=== PATIENT | male | born 1990 | race Caucasian/White ===

== ENCOUNTER 2017-07-01 08:43 | Emergency (ER) | payer BC ==
[2017-07-01] MEDS ORDERED: Ketorolac INJ* 30 MG/ML 1 ML VIAL IV PUSH ONE (08:53)
[2017-07-01] MEDS ORDERED: NS 0.9% 1000 ML* 1,000 ML IV ONE (08:53)
[2017-07-01] MEDS ORDERED: Ondansetron INJ* 2 MG/ML VIAL IV ONE (08:57)
[2017-07-01 09:11] LABS: ABS Basophils 0.1 10^3/ul (0-0.2); ABS Eosinophils 0.1 10^3/ul (0-0.6); ABS Lymphocytes 1.1 10^3/ul (1.0-4.8); ABS Monocytes 0.8 10^3/ul (0-0.8); ABS Neutrophils 10.7 10^3/ul (1.5-7.7); ABS Nucleated RBC 0 10^3/ul; Eosinophil % 0.4 % (0-6); Hematocrit 46 % (42-52); Hemoglobin 15.2 g/dl (14.0-18.0); Lymphocyte % 8.6 % (25-47); Mean Corpuscular HGB Conc 33 g/dl (31-36); Mean Corpuscular Hemoglobin 30 pg (27-31); Mean Corpuscular Volume 91 fL (80-94); Mean Platelet Volume 8.4 um3 (7.4-10.4); Nucleated Red Blood Cells % 0; Platelet Count 330 10^3/ul (150-450); Red Blood Count 5.04 10^6/ul (4.0-5.4); Red Cell Distribution Width 13 % (10.5-15); White Blood Count 12.7 10^3/ul (3.5-10.8)
--- NOTE | 2017-07-01 09:27 | RAD ---
CLINICAL HISTORY: Left flank pain. COMPARISON: None TECHNIQUE: Noncontrast CT examination of the abdomen and pelvis from the lung bases through the initial tuberosities. FINDINGS: VISUALIZED LUNG BASES: The visualized lung bases are grossly clear. There is no pleural effusion. ABDOMEN AND PELVIS: Evaluation of the solid organs and vasculature is limited without intravenous contrast. The liver, spleen, pancreas and adrenal glands are grossly normal in appearance. The gallbladder is normal. At the lower pole collecting system of the right kidney there is a nonobstructing punctate calcification (coronal image 42). Otherwise the right kidney is normal in appearance without focal mass, calcification or signs of hydronephrosis. At the lower pole collecting system of the right kidney (coronal image 43) there is a 3 mm calcification. The left kidney exhibits a mild degree of hydronephrosis and the left ureter, though not pathologically dilated strictly by size criteria, appears wider than the contralateral right ureter. At the left ureterovesical junction there is a 3 mm calcification (coronal image 48 and axial image 142). Evaluation of the gastrointestinal tract is limited without oral contrast. The small and large bowel are not distended.The patient's normal appendix is identified in the right lower quadrant measuring 6 mm in diameter (coronal image 36 and axial image 100).. There is no gross retroperitoneal or mesenteric lymphadenopathy. The pelvic viscera is normal in appearance. The abdominal aorta and iliac arteries are normal in course and diameter. Degenerative changes at L5/S1 include loss of intervertebral disc height and marginal osteophyte formation.There are no sinister bone lesions. IMPRESSION: 1. There is mild left-sided hydronephrosis with a 3 mm calcification at the left ureterovesical junction. Additional nonobstructing renal calculi are noted in the bilateral collecting systems. 2. Degenerative changes are noted at L5/S1 that appear advanced for the patient's age.
[2017-07-01 10:05] LABS: Urine Appearance Clear; Urine Blood 2+ (Negative); Urine Color Yellow; Urine Ketones Trace (Negative); Urine Protein Negative (Negative); Urine Specific Gravity 1.017 (1.010-1.030); Urine Urobilinogen Negative (Negative)
--- NOTE | 2017-07-01 10:14 | ED ---
Abdominal Pain/Male - HPI Summary HPI Summary: Patient is an otherwise healthy 26-year-old male presenting to the ED with chief complaint of left sided flank pain. History of kidney stones and states spell similar. Endorses nausea, but no vomiting. Pain is been present 2 days and has been worsening. Today is the worst pain 9 out of 10. He appears to be very anxious and uncomfortable on arrival. Denies any fevers, sweats, chills. He sees a urologist, but last time was over one year ago. Denies any obstructive symptoms or any other urinary symptoms. He has been otherwise healthy and takes no medications. He has been taking ibuprofen and heat without relief. He states this kidney stones usually pass on their own and has never required surgery or laser. - History of Current Complaint Chief Complaint: EDFlankPain Stated Complaint: LT FLANK PAIN Time Seen by Provider: 07/01/17 08:52 Hx Obtained From: Patient Onset/Duration: Sudden Onset Timing: Constant Severity Initially: Mild Severity Currently: Mild Pain Intensity: 6 Pain Scale Used: 0-10 Numeric - Need a wheelchair in room 5 Location: Flank Radiates: Yes Character: Burning, Cramping Aggravating Factor(s): Nothing Alleviating Factor(s): Nothing - All Associated Signs And Symptoms: Positive: Negative - Risk Factors Testicular Torsion: Negative Cardiac Risk Factors: Negative - Allergies/Home Medications Allergies/Adverse Reactions: Allergies Allergy/AdvReac Type Severity Reaction Status Date / Time No Known Allergies Allergy Verified 07/01/17 08:46 PMH/Surg Hx/FS Hx/Imm Hx Previously Healthy: Yes - Immunization History Hx Pertussis Vaccination: No Immunizations Up to Date: Unable to Obtain/Confirm Infectious Disease History: No Infectious Disease History: Denies: Traveled Outside the [place] in Last 30 Days - Social History Occupation: Employed Full-time Lives: With Family Alcohol Use: None Hx Substance Use: No Substance Use Type: Reports: None Hx Tobacco Use: No Smoking Status (MU): Unknown if Ever Smoked Review of Systems Constitutional: Negative Negative: Fever, Chills, Fatigue Negative: Photophobia, Blurred Vision Negative: Palpitations, Chest Pain Negative: Shortness Of Breath, Cough Genitourinary: Negative Positive: no symptoms reported, see HPI, flank pain Neurological: Negative All Other Systems Reviewed And Are Negative: Yes Physical Exam Triage Information Reviewed: Yes Vital Signs On Initial Exam: Initial Vitals Temp Pulse Resp BP Pulse Ox 97.6 F 74 17 132/73 98 07/01/17 08:46 07/01/17 08:46 07/01/17 08:46 07/01/17 08:46 07/01/17 08:46 Vital Signs Reviewed: Yes Appearance: Positive: Well-Appearing, Well-Nourished Skin: Positive: Warm, Skin Color Reflects Adequate Perfusion Head/Face: Positive: Normal Head/Face Inspection Eyes: Positive: EOMI, ARTHUR Neck: Positive: Supple, No Lymphadenopathy Respiratory/Lung Sounds: Positive: Clear to Auscultation, Breath Sounds Present Cardiovascular: Positive: RRR, Pulses are Symmetrical in both Upper and Lower Extremities Abdomen Description: Positive: Nontender, Bruit, CVA Tenderness (L) Bowel Sounds: Positive: Present Musculoskeletal: Positive: Normal, Strength/ROM Intact Neurological: Positive: Sensory/Motor Intact, Alert, Oriented to Person Place, Time, Speech Normal Psychiatric: Positive: Normal Diagnostics - Vital Signs Vital Signs Temp Pulse Resp BP Pulse Ox 07/01/17 08:46 97.6 F 74 17 132/73 98 - Laboratory Lab Results: Lab Results 07/01/17 07/01/17 07/01/17 Range/Units 09:00 09:00 09:40 WBC 12.7 H (3.5-10.8) 10^3/ul RBC 5.04 (4.0-5.4) 10^6/ul Hgb 15.2 (14.0-18.0) g/dl Hct 46 (42-52) % MCV 91 (80-94) fL MCH 30 (27-31) pg MCHC 33 (31-36) g/dl RDW 13 (10.5-15) % Plt Count 330 (150-450) 10^3/ul MPV 8.4 (7.4-10.4) um3 Neut % (Auto) 84.3 H (38-83) % Lymph % (Auto) 8.6 L (25-47) % [place] % (Auto) 6.1 (0-7) % Eos % (Auto) 0.4 (0-6) % Baso % (Auto) 0.6 (0-2) % Absolute Neuts (auto) 10.7 H (1.5-7.7) 10^3/ul Absolute Lymphs (auto) 1.1 (1.0-4.8) 10^3/ul Absolute Monos (auto) 0.8 (0-0.8) 10^3/ul Absolute Eos (auto) 0.1 (0-0.6) 10^3/ul Absolute Basos (auto) 0.1 (0-0.2) 10^3/ul Absolute Nucleated RBC 0 10^3/ul Nucleated RBC % 0 Sodium 138 L (139-145) mmol/L Potassium 3.9 (3.5-5.0) mmol/L Chloride 100 L (101-111) mmol/L Carbon Dioxide 28 (22-32) mmol/L Anion Gap 10 (2-11) mmol/L BUN 11 (6-24) mg/dL Creatinine 1.03 (0.67-1.17) mg/dL Est GFR ( Amer) 113.2 (>60) Est GFR (Non-Af Amer) 88.0 (>60) BUN/Creatinine Ratio 10.7 (8-20) Glucose 101 H (70-100) mg/dL Calcium 9.8 (8.6-10.3) mg/dL Total Bilirubin 0.40 (0.2-1.0) mg/dL AST 28 (13-39) U/L ALT 49 (7-52) U/L Alkaline Phosphatase 82 (34-104) U/L C-Reactive Protein 3.32 (< 5.00) mg/L Total Protein 8.0 (6.4-8.9) g/dL Albumin 4.7 (3.2-5.2) g/dL Globulin 3.3 (2-4) g/dL Albumin/Globulin Ratio 1.4 (1-3) Urine Color Yellow Urine Appearance Clear Urine pH 7.0 (5-9) Ur Specific [place] 1.017 (1.010-1.030) Urine Protein Negative (Negative) Urine Ketones Trace A (Negative) Urine Blood 2+ A (Negative) Urine Nitrate Negative (Negative) Urine Bilirubin Negative (Negative) Urine Urobilinogen Negative (Negative) Ur Leukocyte Esterase Negative (Negative) Urine WBC (Auto) Absent (Absent) Urine RBC (Auto) 2+(6-10/hpf) A (Absent) Urine Bacteria Absent (Absent) Urine Glucose Negative (Negative) Result Diagrams: 07/01/17 09:00 07/01/17 09:00 Lab Statement: Any lab studies that have been ordered have been reviewed, and results considered in the medical decision making process. Abdominal Pain Fem Course/Dx - Course Course Of Treatment: During the course of treatment, the patient's evaluated for left flank pain. Kidney stone versus muscle spasm versus other pathology. Toradol and Zofran given with good effect. CT abdomen and pelvis obtained which shows a 3 mm kidney stone in the UVJ. While patient is here in the ED, he passed the stone and provider was able to visualize this. UA obtained which shows no infection. Mild hydronephrosis. I have encouraged him to follow back up with his urologist this week for further evaluation and of given him Toradol for any worsening or changing symptoms. He is okay with this plan at discharge. - Diagnoses Provider Diagnoses: Kidney calculi Discharge - Sign-Out/Discharge Documenting (check all that apply): Discharge/Admit/Transfer - Discharge Plan Condition: Stable Disposition: HOME Prescriptions: Ketorolac TAB * [Toradol TAB *] 10 mg PO Q6H #16 tab Patient Education Materials: Kidney Stones (ED) Referrals: No Primary Care Phys,NOPCP [Primary Care Provider] - Juan Buchanan MD [Medical Doctor] - Additional Instructions: Please follow-up with your urologist or Dr. Buchanan Toradol up to 4 times daily for any pain Please return for any worsening symptoms despite the pain medication or if you' re unable to urinate - Billing Disposition and Condition Condition: STABLE Disposition: HOME
[2017-07-01 10:19] VITALS: BP 113/68
== END 2017-07-01 10:19 | disposition home or self-care (01) ==
LOC: ED 08:43
DX: N13.2 Hydronephrosis with renal and ureteral calculous obstruction (principal); Z87.442 Personal history of urinary calculi
CPT/HCPCS: 36415; 74176; 80053; 81003; 81015; 85025; 86140; 96360; 96374; 96375; 99282; J1885; J2405

== ENCOUNTER 2017-09-23 18:48 | Emergency (ER) | payer BC ==
--- NOTE | 2017-09-23 22:20 | ED ---
HPI Chest Pain - HPI Summary HPI Summary: This is gianna Garland documenting for attending physician Manuel Adame M.D. Pt is a 26 y/o M w/ c/o left-sided chest pain onsetting two days ago. Pt was at today with concerns of Lyme disease, but was untested according to Pt. After leaving , while on his way home, he states that he became concerned about the chest pain which he had been having the past two days and went to the ED. Pain is rated 2/10 on triage. He also reports erythema on his right thigh, first seen 2-3 weeks ago. When Pt first saw erythematous area, he notes it was large and warm to touch but also reports it was not painful nor pruritic. A similar rash was also present on back, onsetting one week ago. Pt reports that he frequently goes outdoors. - History of Current Complaint Chief Complaint: EDChestWallPain Time Seen by Provider: 09/23/17 22:12 Hx Obtained From: Patient Onset/Duration: Started Days Ago - two days Timing: Constant Current Severity: None Pain Intensity: 2 Pain Scale Used: 0-10 Numeric - 2/10 Chest Pain Location: Discrete at: - left-side Chest Pain Radiates: No Aggravating Factor(s): Nothing Alleviating Factor(s): Nothing Associated Signs and Symptoms: Positive: Other: - erythematous area on right thigh, back rash - Allergy/Home Medications Allergies/Adverse Reactions: Allergies Allergy/AdvReac Type Severity Reaction Status Date / Time No Known Allergies Allergy Verified 07/01/17 08:46 Home Medications: Home Medications NK [No Home Medications Reported] 09/23/17 [History Confirmed 09/23/17] PMH/Surg Hx/FS Hx/Imm Hx History: Reports: Hx Kidney Stones Sensory History: Denies: Hx Legally Blind Infectious Disease History: No Infectious Disease History: Denies: Traveled Outside the [place] in Last 30 Days - Family History Known Family History: Negative: Blood Disorder - Social History Alcohol Use: None Hx Substance Use: No Substance Use Type: Reports: None Hx Tobacco Use: No Smoking Status (MU): Unknown if Ever Smoked Review of Systems Positive: Chest Pain Positive: Rash - target rash on right medial thigh and upper left back All Other Systems Reviewed And Are Negative: Yes Physical Exam - Summary Physical Exam Summary: Appearance: Well-appearing, Well-nourished, lying in bed comfortably Skin: Warm, dry, classic target rash on right medial thing and left upper back. Eyes: sclera anicteric, no conjunctival pallor ENT: mucous membranes moist, pharynx appears normal Neck: Supple, nontender Respiratory: Clear to auscultation, no signs of respiratory distress Cardiovascular: Normal S1, S2. No murmurs. Normal distal pulses in tibial and radial bilaterally. Abdomen: Soft, nontender, normal active bowel sounds present Musculoskeletal: Normal, Strength/ROM Intact Neurological: A&Ox3, awake and alert, mentation is normal, speech is fluent and appropriate Psychiatric: affect is normal, does not appear anxious or depressed Triage Information Reviewed: Yes Vital Signs On Initial Exam: Initial Vitals Temp Pulse Resp BP Pulse Ox 98.9 F 88 16 149/84 97 09/23/17 18:53 09/23/17 18:53 09/23/17 18:53 09/23/17 18:53 09/23/17 18:53 Vital Signs Reviewed: Yes Diagnostics - Vital Signs Vital Signs Temp Pulse Resp BP Pulse Ox 09/23/17 20:41 98.7 F 69 15 119/76 98 09/23/17 18:53 98.9 F 88 16 149/84 97 - Laboratory Lab Statement: Any lab studies that have been ordered have been reviewed, and results considered in the medical decision making process. - EKG 1933 Cardiac Rate: NL - Rate is 68 BPM. EKG Rhythm: Sinus Rhythm EKG Interpretation: EKG is normal Chest Pain Course/Dx - Diagnoses Provider Diagnoses: Lyme disease, Acute chest pain Discharge - Sign-Out/Discharge Documenting (check all that apply): Patient Departure - Discharge Plan Condition: Good Disposition: HOME Patient Education Materials: Lyme Disease (ED), Tick Bite (ED) Referrals: No Primary Care Phys,NOPCP [Primary Care Provider] - [facility] [Outside] - Billing Disposition and Condition Condition: GOOD Disposition: Home
[2017-09-23 23:21] VITALS: BP 123/85
== END 2017-09-23 23:04 | disposition home or self-care (01) ==
LOC: ED 18:48
DX: A69.20 Lyme disease, unspecified (principal); R07.89 Other chest pain; Z87.442 Personal history of urinary calculi
CPT/HCPCS: 93005; 99282